=== PATIENT | female | born 1950 | race Two or more races ===

== ENCOUNTER → 2024-06-16 | Outpatient (CLI) | payer OTHER, SELFPAY ==
[2024-06-16 07:53] LABS: Collection Type, Urine Clean Catch
[2024-06-16 08:30] LABS: Basophils # (Auto) 0.1 Thou/mm3 (0.0-0.2); Basophils % (Auto) 1 % (0-2.5); Eosinophils # (Auto) 0.2 Thou/mm3 (0.0-0.5); Eosinophils % (Auto) 3 % (0-10); Hematocrit 40.1 % (36.0-46.0); Hemoglobin 13.1 g/dL (12.0-16.0); Immature Granulocytes % (Auto) 0 % (0-0); Immature Granulocytes Auto 0.02 Thou/mm3 (0.00-0.00); Lymphocytes # (Auto) 1.6 Thou/mm3 (1.0-4.8); Lymphocytes % (Auto) 20 % (10-50); Mean Corpuscular HGB Conc 32.7 g/dl (31.0-37.0); Mean Corpuscular Hemoglobin 28.7 pg (25.0-35.0); Mean Corpuscular Volume 88 fL (80-100); Monocytes # (Auto) 0.6 Thou/mm3 (0.0-0.8); Monocytes % (Auto) 7 % (0-12); Neutrophils # (Auto) 5.4 Thou/mm3 (1.8-7.7); Neutrophils % (Auto) 69 % (37-80); Nucleated Red Blood Cell % 0 /100 WBC (0); Platelet Count 203 Thou/mm3 (140-440); RDW Standard Deviation 43.4 fL (36.4-46.3); Red Blood Count 4.56 Miln/mm3 (4.00-5.20); White Blood Count 7.9 Thou/mm3 (3.6-11.0)
[2024-06-16 08:36] LABS: Bacteria,Urine Rare; Bilirubin,Urine Negative (Negative); Blood,Urine Negative (Negative); Clarity,Urine Clear (Clear/Hazy); Color,Urine Yellow (Lt Yel-Yel); Glucose, Urine Negative (Negative); Ketones,Urine Negative (Negative); Leukocyte Esterase,Urine Positive (Negative); Nitrite,Urine Negative (Negative); Protein,Urine Trace (Neg - Trace); RBC,Urine 7 /hpf (0-3); Specific Gravity,Urine 1.028 (1.001-1.035); Squamous Epithelial Cell,Urine 5 /hpf (0-5); Urobilinogen,Urine Negative mg/dL (0.0-1.0); WBC,Urine 4 /hpf (0-5)
[2024-06-16 08:49] LABS: Alanine Aminotransferase 25 U/L (10-49); Albumin, Serum 4.1 gm/dL (3.4-4.8); Albumin/Globulin Ratio 1.4 (1.2-2.2); Alkaline Phosphatase 67 U/L (46-116); Anion Gap 5 (7-16); Aspartate Amino Transferase 22 U/L (0-34); BUN/Creatinine Ratio 29 Ratio (12-20); Bilirubin,Total 0.6 mg/dL (0.3-1.2); Blood Urea Nitrogen 26 mg/dL (9-23); Carbon Dioxide 30.4 mMol/L (20.0-31.0); Chloride 107 mMol/L (98-107); Creatinine (Component) 0.9 mg/dL (0.6-1.3); Globulin 2.9 gm/dL (2.3-3.5); Glucose 112 mg/dL (74-106); Osmolality,Calculated 288 (275-295); Potassium 3.5 mMol/L (3.4-5.1); Sodium 142 mMol/L (136-145); Thyroid Stimulating Hormone 1.19 uIU/mL (0.55-4.78); eGFR > 60 See Note
== END | disposition home or self-care (01) ==
LOC: COPL 07:29
PROVIDERS: PCP Family Medicine; Referring Provider Family Medicine; Visit Provider Family Medicine
DX: I10 Essential (primary) hypertension (principal)
CPT/HCPCS: 36415; 80053; 81001; 84443; 85025

== ENCOUNTER 2024-07-01 09:58 | Emergency (ER) | payer OTHER, SELFPAY ==
[2024-07-01 09:59] VITALS: BMI 25.3
[2024-07-01 10:42] VITALS: BP 110/47; PULSE 73; RESP 18; TEMP 36.8; O2SAT 95; BMI 25.3
--- NOTE | 2024-07-01 11:10 | XR_ITS ---
Examination: Left hand 2 views Technique: AP lateral left hand 2 views Exam date and time: July 01, 2024 11:18 AM Indications: Patient fell yesterday with injury to the hand, hand pain wrist pain Findings: Prominent osteopenia Acute impacted angulated fracture distal radial metaphysis, one half shaft width dorsal displacement of the distal fracture fragment Carpal bones metacarpals and digits appear intact Impression: Acute impacted angulated displaced fracture distal radial metaphysis
--- NOTE | 2024-07-01 11:10 | XR_ITS ---
Examination: Forearm, left, 2 views. Technique: Forearm, AP, lateral 2 views Date and time of exam: July 01, 2024 1114 hrs. Indications: Patient fell yesterday with injury to the forearm, forearm pain. Findings: Acute impacted angulated fracture distal radial metaphysis, one half shaft width dorsal displacement of the distal articulating fracture fragment All intact Impression: Acute angulated impacted fracture distal radial metaphysis
--- NOTE | 2024-07-01 11:11 | PD.EDRME ---
Rapid Medical Screening Exam [facility] Arrival date/time: 07/01/24 09:58 Chief Complaint: Hand/Wrist Problems Time Seen by Provider: 07/01/24 10:46 Vital signs: Vital Signs Temperature 98.2 F 07/01/24 10:42 Pulse Rate 73 07/01/24 10:42 Respiratory Rate 18 07/01/24 10:42 Blood Pressure 110/47 L 07/01/24 10:42 Pulse Oximetry (%) 95 07/01/24 10:42 Oxygen Delivery Method Room Air 07/01/24 10:42 [facility] Narrative: 73-year-old female sustained a trip and fall after her daughter's dog tripped her. No loss of consciousness. Pain and swelling is isolated to left forearm left wrist and left hand. Was seen at urgent care and given a shot for pain. But they did not have an x-ray machine. Family is concerned about a fracture.
--- NOTE | 2024-07-01 15:27 | PD.EDHAND ---
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 She states that a family member's dog accidentally tripped her and she fell over backwards with her hands above her head. She sustained an injury to her left wrist but denies striking her head or having any loss of consciousness. She denies any neck pain, head pain, right upper extremity pain, hip or pelvic pain or lower extremity pain. She was seen at urgent care earlier today but no x-rays were available at the facility. She was given an injection of Toradol. Her pain is currently mild. She was offered additional pain medications which she refused. Mode of arrival: ambulatory Limitations: no limitations RME / HPI RME / HPI narrative: 73-year-old female sustained a trip and fall after her daughter's dog tripped her. No loss of consciousness. Pain and swelling is isolated to left forearm left wrist and left hand. Was seen at urgent care and given a shot for pain. But they did not have an x-ray machine. Family is concerned about a fracture. Related Data Home Medications ?Medication ?Instructions ?Recorded ?Confirmed aspirin 81 mg tablet,delayed 81 mg PO QDAY 01/15/19 07/10/24 release (Aspir-) atorvastatin 20 mg tablet 20 mg PO QPM 01/15/19 07/10/24 diltiazem HCl 240 mg 240 mg PO QDAY 01/15/19 07/10/24 capsule,extended release 24 hr, controlled (DILT-XR) enalapril maleate 20 mg tablet 20 mg PO QDAY 01/15/19 07/10/24 hydrochlorothiazide 25 mg tablet 25 mg PO QDAY 01/15/19 07/10/24 multivitamin with [id number] 1 tab PO DAILY 01/15/19 07/10/24 400 mcg-120 mg tablet (One Daily Women 50 Plus) Previous Rx's ?Medication ?Instructions ?Recorded escitalopram oxalate 10 mg tablet 10 mg PO QDAY #30 tabs 01/17/19 Allergies Allergy/AdvReac Type Severity Reaction Status Date / Time No Known Allergies Allergy Verified 07/01/24 10:01 Review of Systems Review of Systems Systems Reviewed: All systems reviewed, normal except as documented Constitutional Constitutional: Reports system reviewed and no additional complaints, except as documented Cardiovascular Cardiovascular: Reports system reviewed and no additional complaints, except as documented, Denies chest pain, Denies dyspnea and Denies lightheadedness Respiratory Respiratory: Reports system reviewed and no additional complaints, except as documented, Denies cough and Denies dyspnea Gastrointestinal Gastrointestinal: Denies nausea and Denies vomiting Past Medical History Past Medical History NEUROLOGIC: Positive Neurological Disorders and Cerebrovascular Accident CARDIAC: Positive Cardiac Disorders, Hypercholesterolemia, Aneurysm and Hypertension; Negative Congestive Heart Failure RESPIRATORY: Negative Chronic Obstructive Pulmonary Disease (COPD) GASTROINTESTINAL: Negative Gastrointestinal Disorders GENITOURINARY: Positive Genitourinary Disorders; Negative Renal Disease MUSCULOSKELETAL: Positive Musculoskeletal Disorders and Arthritis ENDOCRINE: Negative Endocrine Disorders, Diabetes Mellitus Type 1 or Diabetes Mellitus Type 2 HEMATOLOGIC: Positive Blood Disorders and Anemia PSYCHO/SOCIAL: Positive Depression OTHER HISTORY: Negative Autoimmune Disease Family History FAMILY HISTORY: Positive Family Respiratory Disorders, Family Cardiac Disorders, Family Cancer and Family Surgery; Negative Family Psychiatric Problems, Family Gastrointestinal Problems or Family Anesthesia Reaction Social History SMOKING STATUS: Never smoker SECOND HAND EXPOSURE: No ED Exam General Limitations: Present no limitations General appearance: Present in no apparent distress Head Head exam: Present atraumatic and normocephalic Eye Eye exam: Present normal appearance; Absent conjunctival injection ENT ENT exam: Present normal exam Neck Neck exam: Present normal inspection and full ROM Chest Chest inspection: Present normal inspection and symmetric chest wall rise Respiratory Respiratory exam: Present normal lung sounds bilaterally; Absent respiratory distress Cardiovascular Cardiovascular exam: Present regular rate and normal rhythm Extremities Exam Extremities exam: Present tenderness; Absent normal inspection or full ROM Expanded Upper Extremity Exam Shoulder exam: Present normal inspection and full ROM; Absent tenderness Arm exam: Present normal inspection; Absent tenderness Elbow exam: Present normal inspection and full ROM; Absent tenderness Forearm/Wrist exam: Present tenderness, swelling, ecchymosis and deformity; Absent normal inspection, full ROM, tenderness over anatomical snuff box or pain with axial thumb loading Hand exam: Present full ROM, swelling and ecchymosis; Absent tenderness Vascular exam: Normal capillary refill Back Exam Back exam: Present normal inspection Neurological Exam Neurological exam: Present alert and oriented X3; Absent motor sensory deficit Psychiatric Psychiatric exam: Present normal affect and normal mood Skin Skin exam: Present warm, dry and intact Course Course Course Narrative: 73-year-old female with a past medical history of hypertension, hyperlipidemia, and 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 She states that a family member's dog accidentally tripped her and she fell over backwards with her hands above her head. She sustained an injury to her left wrist but denies striking her head or having any loss of consciousness. She denies any neck pain, head pain, right upper extremity pain, hip or pelvic pain or lower extremity pain. She was seen at urgent care earlier today but no x-rays were available at the facility. She was given an injection of Toradol. Her pain is currently mild. She was offered additional pain medications which she refused. Exam reveals a alert and oriented 73-year-old female with right sided weakness secondary to a previous aneurysm early in life. She has no tenderness to the neck, shoulders, upper arms or elbows. Left forearm reveals swelling, tenderness and ecchymosis to the distal radius area. The swelling and ecchymosis extend down to the left wrist radial side and into the left hand. There is no tenderness to the left hand and no pain with axial thumb load or snuffbox tenderness. She has decreased range of motion secondary to pain. Neuro, motor, vascular intact distally. The patient was placed in a volar splint and given a sling. She will be advised to follow-up with her primary care physician for referral to an urban redevelopment specialist. It is recommended that she ice and elevate the left upper extremity to prevent reduce swelling, pain. Quality Measures none Orders Category Date Time Status XR forearm LT 2V Stat Exams 07/01/24 11:10 Completed XR hand LT 2V Stat Exams 07/01/24 11:10 Completed Vital Signs Vital signs: Vital Signs Temperature 98.2 F 07/01/24 10:42 Pulse Rate 73 07/01/24 10:42 Respiratory Rate 18 07/01/24 10:42 Blood Pressure 110/47 L 07/01/24 10:42 Pulse Oximetry (%) 95 07/01/24 10:42 Oxygen Delivery Method Room Air 07/01/24 10:42 Procedures -ED Splint Fabrication: Clinician Made Type: Volar Reason for Splint: Pain Management Site condition: Bruised, Numbness and Tingling Extremity Injury MDM Narrative MDM Narrative:: 73-year-old female with a past medical history of hypertension, hyperlipidemia, and 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 She states that a family member's dog accidentally tripped her and she fell over backwards with her hands above her head. She sustained an injury to her left wrist but denies striking her head or having any loss of consciousness. She denies any neck pain, head pain, right upper extremity pain, hip or pelvic pain or lower extremity pain. She was seen at urgent care earlier today but no x-rays were available at the facility. She was given an injection of Toradol. Her pain is currently mild. She was offered additional pain medications which she refused. Exam reveals a alert and oriented 73-year-old female with right sided weakness secondary to a previous aneurysm early in life. She has no tenderness to the neck, shoulders, upper arms or elbows. Left forearm reveals swelling, tenderness and ecchymosis to the distal radius area. The swelling and ecchymosis extend down to the left wrist radial side and into the left hand. There is no tenderness to the left hand and no pain with axial thumb load or snuffbox tenderness. She has decreased range of motion secondary to pain. Neuro, motor, vascular intact distally. The patient was placed in a volar splint and given a sling. She will be advised to follow-up with her primary care physician for referral to an urban redevelopment specialist. It is recommended that she ice and elevate the left upper extremity to prevent reduce swelling, pain. Patient data External records reviewed:: None Clinical information provided by:: patient Social determinants that could affect healthcare access:: none Patient has the following chronic illnesses:: HTN, HLD, Depression How is presenting disease/condition affected by chronic disease/condition?: uneffected by Evaluation data The following diagnostics were reviewed and interpreted by me:: radiology exam(s) Lab and/or radiology exams considered but not ordered:: N/A Interpretation Summary: Left Hand X-ray: Findings: Prominent osteopenia. Acute impacted angulated fracture distal radial metaphysis, one half shaft width. dorsal displacement of the distal fracture fragment. Carpal bones metacarpals and digits appear intact Impression: Acute impacted angulated displaced fracture distal radial metaphysis Left Forearm X-ray: Findings: Acute impacted angulated fracture distal radial metaphysis, one half shaft width dorsal displacement of the distal articulating fracture fragment All intact Impression: Acute angulated impacted fracture distal radial metaphysis Medications / Prescriptions Medications or Prescriptions considered but not ordered:: N/A Medication administrations:: N/A Consultations Consultation(s) initiated? (list below): No Diagnosis Upper Extremity Injury Differential Diagnosis: sprain and strain of wrist, fracture of wrist, Colles' fracture and fracture of hand Most likely diagnosis given after review of the tests above:: Distal Radius Fracture Admission Indicated Admission indicated?: not indicated Explain why admission is indicated or not indicated:: Patient is stable for discharge Admission Request Was there a request for admission?: No Disposition Plan Disposition Plan: Discharge Discharge Attestation Discharge Attestation: The patient and all family members were given an opportunity to ask questions and understood the discharge instructions. Discharge instructions specifically effects, indications for sooner follow up or return to the emergency department, and the expected course of current diagnosis. Patient condition: Stable Discharge Plan Plan Patient Disposition: HOME (Self Care) Discharge Disposition comment: Stable & Improved Prescriptions/Referrals Prescriptions/Med Rec: No Action atorvastatin 20 mg Tablet 20 mg PO QPM diltiazem HCl [DILT-XR] 240 mg Capsule,Ext.Rel 24h Degradable 240 mg PO QDAY enalapril maleate 20 mg Tablet 20 mg PO QDAY hydrochlorothiazide 25 mg Tablet 25 mg PO QDAY aspirin [Aspir-81] 81 mg Tablet,Delayed Release (Dr/Ec) 81 mg PO QDAY One Daily Women 50 Plus 400-120 mcg-mg Tablet 1 tab PO DAILY escitalopram oxalate 10 mg Tablet 10 mg PO QDAY Qty: 30 0RF Referrals: Unique Rojo MD [Primary Care Provider] - In 1 week Problem List Clinical Impression: Fracture of wrist Patient/Caregiver Discharge Instructions Discharge Activity: other Other Activity Instructions:: Wear the splint at all times until you are seen by the urban redevelopment specialist. At that time they will replace the splint and determine if surgical repair is necessary. Education Materials: Treating Wrist Fractures, ED Fracture, Wrist, General Additional Instructions: Follow-up with primary care physician for referral to an urban redevelopment specialist. 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
== END 2024-07-01 15:57 | disposition home or self-care (01) ==
PROVIDERS: Emergency Provider Emergency Medicine; PCP Family Medicine
DX: S52.502A Unspecified fracture of the lower end of left radius, initial encounter for closed fracture (principal); W01.0XXA Fall on same level from slipping, tripping and stumbling without subsequent striking against object, initial encounter
CPT/HCPCS: 29125; 73090; 73120; 99283

== ENCOUNTER 2024-07-10 13:30 | Inpatient (IN) | payer OTHER, MEDICARE, SELFPAY ==
[2024-07-10 13:37] VITALS: BP 132/66; RESP 17; TEMP 36.7; O2SAT 97
--- NOTE | 2024-07-10 13:45 | XR_ITS ---
Examination: CT brain head without contrast. 2-D sagittal coronal reconstructions Date and time of exam:July 10, 2024 1516 hours Comparison January 15, 2019 INDICATIONS: Patient fell 4 days ago with injury to the head, head pain CTDI: vol (mGy):9.9 DLP: (mGycm):955 Technique: Multiple CT axial sections of the brain have been obtained, 5 mm slice thickness. Contrast has not been administered. 2-D sagittal, coronal reconstructions have been obtained Low dose protocols were performed. One or more of the following dose reduction techniques were used; automated exposure control, adjustment of the mA and/or KV according to patient size, use of iterative reconstruction technique. Findings: No significant ventricular enlargement. 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 No mass effect or midline shift Basal cisterns are not remarkable. Fourth ventricle is midline. Cranial vault intact. Impression: Negative for acute hemorrhage, mass effect or midline shift
--- NOTE | 2024-07-10 13:45 | XR_ITS ---
Examination: CT cervical spine without contrast 2-D sagittal reconstructions 2-D coronal reconstructions 3-D reconstructions. Exam date and time:July 10, 2024 1516 hours INDICATIONS: Patient fell 4 days ago with injury to the neck, neck pain CTDI:vol (mGy) 7.9 DLP: (mGycm) 182 Technique: Multiple 2 mm axial sections of the cervical spine have been obtained. The coronal and sagittal reconstructions have been obtained. 3-D reconstructions have been obtained. Low dose protocols were performed. One or more of the following dose reduction techniques were used; automated exposure control, adjustment of the mA and/or KV according to patient size, use of iterative reconstruction technique. Findings: Axial sections demonstrate intact base of the skull. C1 exhibit satisfactory relationship to the odontoid. No acute cervical vertebral body fracture seen. Alignment posterior spinous processes satisfactory. Impression: No acute cervical fracture.
--- NOTE | 2024-07-10 13:45 | EKG_ITS ---
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
[2024-07-10 13:48] VITALS: PULSE 71
--- NOTE | 2024-07-10 13:48 | PD.EDADULT ---
ED General RME/HPI General Chief complaint: Fall Stated complaint: FALL Time Seen by Provider: 07/10/24 13:44 Arrival date/time: 07/10/24 13:30 CC: Altered mental status HPI patient fell 4 days ago managed to crawl up into a chair and sat there for the past 4 days until her daughter showed up and called 911. The patient supposedly has a prior TBI history, patient was seen here recently for fall resulting in a wrist fracture. Patient is awake alert and oriented to self and place. Has no specific pain. Space that the 4 days she is sitting in the chair she was defecating and urinating on herself. EMS reports stable vital signs en route. I interviewed the care provider at 1940 was states the patient slipped and fell on Wednesday was placed in the recliner, they were not able to move her to the bed, but they would stand her up to dress her and feed her on occasion but left her in the chair for 3 days and finally were concerned that the patient was not doing any better and called 911. Related Data Home Medications ?Medication ?Instructions ?Recorded ?Confirmed aspirin 81 mg tablet,delayed 81 mg PO QDAY 01/15/19 01/16/19 release (Aspir-) atorvastatin 20 mg tablet 20 mg PO QPM 01/15/19 01/16/19 carvedilol 6.25 mg tablet 6.25 mg PO BID 01/15/19 01/16/19 diltiazem HCl 240 mg 240 mg PO QDAY 01/15/19 01/16/19 capsule,extended release 24 hr, controlled (DILT-XR) enalapril maleate 20 mg tablet 20 mg PO QDAY 01/15/19 01/16/19 hydrochlorothiazide 25 mg tablet 25 mg PO QDAY 01/15/19 01/16/19 multivitamin with [id number] 1 tab PO 01/15/19 400 mcg-120 mg tablet (One Daily Women 50 Plus) Previous Rx's ?Medication ?Instructions ?Recorded escitalopram oxalate 10 mg tablet 10 mg PO QDAY #30 tabs 01/17/19 Allergies Allergy/AdvReac Type Severity Reaction Status Date / Time No Known Allergies Allergy Verified 07/01/24 10:01 Review of Systems Review of Systems Narrative Review of Systems: GEN: No fever, no chills, no weight loss EYES: No discharge, no visual changes, no pain HEENT: No ear pain, no congestion, no sore throat PULM: No shortness of breath, no cough, no congestion CV: No chest pain, no dyspnea on exertion, no palpitations GI: No nausea, no vomiting, no diarrhea, no pain, no constipation : No frequency, no urgency, no dysuria MUSC/SKEL: No joint pain, no back pain SKIN: No rash PSYCH: No hallucinations, no depression HEME/LYMPH: No easy bleeding or bruising tendencies NEURO: No weakness, no headache Past Medical History Past Medical History NEUROLOGIC: Positive Neurological Disorders and Cerebrovascular Accident CARDIAC: Positive Cardiac Disorders, Hypercholesterolemia, Aneurysm and Hypertension; Negative Congestive Heart Failure RESPIRATORY: Negative Chronic Obstructive Pulmonary Disease (COPD) GASTROINTESTINAL: Negative Gastrointestinal Disorders GENITOURINARY: Positive Genitourinary Disorders (UTI); Negative Renal Disease MUSCULOSKELETAL: Positive Musculoskeletal Disorders and Arthritis ENDOCRINE: Negative Endocrine Disorders, Diabetes Mellitus Type 1 or Diabetes Mellitus Type 2 HEMATOLOGIC: Positive Blood Disorders and Anemia PSYCHO/SOCIAL: Positive Depression OTHER HISTORY: Negative Autoimmune Disease Family History FAMILY HISTORY: Positive Family Respiratory Disorders, Family Cardiac Disorders, Family Cancer and Family Surgery; Negative Family Psychiatric Problems, Family Gastrointestinal Problems or Family Anesthesia Reaction Social History SMOKING STATUS: Never smoker SECOND HAND EXPOSURE: No ED Exam Narrative Physical exam: [General: Appears not in any acute distress Head normocephalic HEENT: Within acceptable limits Neck is supple nontender Chest equal chest rise nontender to palpation Respiratory: Clear to auscultation no wheezes crackles or rubs CV: Rate rhythm is regular no murmurs rubs or clicks Abdomen is soft nontender no masses positive bowel sounds all 4 quadrants Back: No CVA tenderness no spinous process tenderness from cervical spine thoracic and lumbar spine Skin: Intact no petechiae rash induration ulceration or crepitus Extremities: Left wrist: Patient has a splint on her left wrist with ecchymosis to the dorsum of her hand that are in various stages of resolution. Moving all other extremities against resistance cap refill less than 2 seconds neurosensory intact Neuro: Awake alert oriented x2, person and place, Glascow coma 15 no focal deficits] Course Quality Measures none Orders Category Date Time Status EKG (ED ONLY) *Do not use* NOW Care 07/10/24 13:45 Completed Saline [Insert IV] NOW Care 07/10/24 13:[address] cervical spine wo con Stat Exams 07/10/24 13:[address] head/brain wo con Stat Exams 07/10/24 13:45 Completed EKG (ED Only) Stat Exams 07/10/24 13:45 Draft B-Type Natriuretic Peptide Stat Lab 07/10/24 14:15 Completed CBC Stat Lab 07/10/24 14:15 Completed CMP [Comprehensive Metabolic Panel] Stat Lab 07/10/24 18:20 Results Comprehensive Metabolic Panel Stat Lab 07/10/24 14:15 Completed Creatine Kinase Stat Lab 07/10/24 14:15 Completed Creatine Kinase Stat Lab 07/10/24 18:20 Results Drug Screen,Urine Stat Lab 07/10/24 19:51 Completed LDH (Lactate Dehydrogenase) Stat Lab 07/10/24 14:15 Completed Magnesium Stat Lab 07/10/24 14:15 Completed Partial Thromboplastin Time Stat Lab 07/10/24 14:15 Completed Procalcitonin Stat Lab 07/10/24 18:20 Results Prothrombin Time with INR Stat Lab 07/10/24 14:15 Completed Troponin I Stat Lab 07/10/24 14:15 Completed Urinalysis Stat Lab 07/10/24 19:51 Completed Sodium Chloride 0.9% 1000 ml [Ns] 1,000 ml Med 07/10/24 16:24 Discontinued IV 125 mls/hr Sodium Chloride 0.9% 1000 ml [Ns] 1,000 ml Med 07/10/24 15:10 Discontinued IV 999 mls/hr Sodium Chloride 0.9% 1000 ml [Ns] 1,000 ml Med 07/10/24 15:11 Discontinued IV 999 mls/hr Vital Signs Vital signs: Vital Signs Temperature 98.1 F 07/10/24 13:37 Respiratory Rate 17 07/10/24 13:37 Blood Pressure 132/66 H 07/10/24 13:37 Pulse Oximetry (%) 97 07/10/24 13:37 Oxygen Delivery Method Room Air 07/10/24 13:37 [facility] Patient data External records reviewed:: [facility] previous records and EMS form Clinical information provided by:: patient and EMS Social determinants that could affect healthcare access:: none Patient has the following chronic illnesses:: TBI recurrent fall How is presenting disease/condition affected by chronic disease/condition?: uneffected by Evaluation data The following diagnostics were reviewed and interpreted by me:: lab results and radiology exam(s) Lab and/or radiology exams considered but not ordered:: EKG performed at 1406 shows ventricular rate of 6 6 NC 169 QRS of 133 QTc of 437 this is sinus rhythm. CBC shows a leukocytosis of 15.0 H&H is unremarkable. No thrombocytopenia PC coags within acceptable limits Sodium at 146 potassium of 2.9 chloride of 111 gap of 8 BUN of 31 creatinine of 0.8 serum osmole 297 AST 84 ALT 55 no T. bili elevation alk phos is negative. CK has risen from 900-1000 in spite of 2 L of fluids. BMP is negative. CT head and C-spine are negative for any acute finding requires emergent or immediate intervention Interpretation Summary: In spite of fluids the patient's CKs continue to rise there is no change in her electrolyte imbalances this time I discussed the case with Dr. Faria agrees to accept the patient for admission for hypernatremia rhabdo myelosis. Medications Medications considered but not ordered:: None Medication administrations:: Medication Administration History Acetaminophen (Acetaminophen 325 Mg Tablet) 650 mg PO Q6H PRN PRN Reason: Fever >101.5 Stop: 08/09/24 19:53 Escitalopram Oxalate (Escitalopram Oxalate 10 Mg Tablet) 10 mg PO QDAY [facility] Stop: 08/10/24 08:59 Heparin Sodium (Porcine) (Heparin Sod Inj 5000 Unit/Ml Vial) 5,000 unit SC Q8HR [facility] Stop: 07/24/24 21:59 Potassium Chloride (Kcl Ivpb) 10 meq in 100 mls @ 100 mls/hr IV Q1H NGUYỄN Stop: 07/10/24 23:55 Last Admin: 07/10/24 20:37 Dose: 100 mls/hr Documented By: ANIKET Sodium Chloride (Ns 0.45%) 1,000 mls @ 150 mls/hr IV .Q6H40M [facility] Stop: 08/09/24 20:08 Last Admin: 07/10/24 20:37 Dose: 150 mls/hr Documented By: ANIKET Ceftriaxone Sodium/Dextrose (Rocephin/D5w 1gm Iv Premix) 1 gm in 50 mls @ 100 mls/hr IV QDAY@2100 [facility] Stop: 07/17/24 20:20 Last Admin: 07/10/24 20:50 Dose: 100 mls/hr Documented By: ANIKET Lisinopril (Lisinopril 20 Mg Tablet) 40 mg PO QDAY NGUYỄN Stop: 08/10/24 08:59 Discontinued Medications Sodium Chloride (Ns) 1,000 mls @ 999 mls/hr IV .Q1H1M ONE Stop: 07/10/24 16:10 Last Infusion: 07/10/24 16:27 Dose: Infused Documented By: Admin: 07/10/24 15:26 Dose: 999 mls/hr Documented By: DWAYNE Sodium Chloride (Ns) 1,000 mls @ 999 mls/hr IV .Q1H1M ONE Stop: 07/10/24 16:11 Last Infusion: 07/10/24 16:27 Dose: Infused Documented By: Admin: 07/10/24 15:26 Dose: 999 mls/hr Documented By: DWAYNE Sodium Chloride (Ns) 1,000 mls @ 125 mls/hr IV .Q8H [facility] Stop: 08/09/24 16:23 Last Admin: 07/10/24 16:33 Dose: 125 mls/hr Documented By: BIN Dextrose/Sodium Chloride (D5-1/2ns) 1,000 mls @ 125 mls/hr IV .Q8H [facility] Stop: 08/09/24 19:59 None Consultations Consultation(s) initiated? (list below): No Diagnosis Differential Diagnosis ED Complaint MDM: Rhabdomyolysis hypernatremia hypokalemia Most likely diagnosis given after review of the tests above:: Rhabdomyolysis hypernatremia hypokalemia Admission Indicated Admission indicated?: indicated Explain why admission is indicated or not indicated:: Quires further medical management Admission Request Was there a request for admission?: No Disposition Plan Disposition Plan: Discharge Discharge Attestation Discharge Attestation: The patient and all family members were given an opportunity to ask questions and understood the discharge instructions. Discharge instructions specifically effects, indications for sooner follow up or return to the emergency department, and the expected course of current diagnosis. Patient condition: Stable Medical Decision Making Differential Diagnosis Differential Diagnosis: Rhabdomyolysis hypernatremia hypokalemia Lab Data 07/10/24 14:15 07/10/24 18:20 Labs: Lab Results 07/10/24 07/10/24 07/10/24 Range/Units 14:15 18:20 19:51 WBC 15.0 H (3.6-11.0) Thou/mm3 RBC 4.04 (4.00-5.20) Miln/mm3 Hgb 11.8 L (12.0-16.0) g/dL Hct 36.0 (36.0-46.0) % MCV 89 (80-100) fL MCH 29.2 (25.0-35.0) pg MCHC 32.8 (31.0-37.0) g/dl RDW Std Deviation 43.8 (36.4-46.3) fL Plt Count 248 D (140-440) Thou/mm3 Neut % (Auto) 76 (37-80) % Lymph % (Auto) 12 (10-50) % [place] % (Auto) 8 (0-12) % Eos % (Auto) 3 (0-10) % Baso % (Auto) 0 (0-2.5) % Neut # (Auto) 11.5 H (1.8-7.7) Thou/mm3 Lymph # (Auto) 1.7 (1.0-4.8) Thou/mm3 Johnston # (Auto) 1.2 H (0.0-0.8) Thou/mm3 Eos # (Auto) 0.4 (0.0-0.5) Thou/mm3 Baso # (Auto) 0.1 (0.0-0.2) Thou/mm3 Immature Gran # (Auto) 0.17 H (0.00-0.00) Thou/mm3 Absolute Nucleated RBC 0.00 (0.00-0.00) Thou/mm3 Immature Gran % 1 H (0-0) % Nucleated RBC % 0 (0) /100 WBC PT 10.8 (9.0-12.2) Seconds INR 1.0 (0.9-1.3) APTT 24.0 (22.0-36.0) Seconds Sodium 144 146 H (136-145) mMol/L Potassium 2.9 L 2.9 L (3.4-5.1) mMol/L Chloride 108 H 111 H (98-107) mMol/L Carbon Dioxide 29.8 27.3 (20.0-31.0) mMol/L Anion Gap 6 L 8 (7-16) BUN 37 H 31 H (9-23) mg/dL Creatinine 0.9 0.8 (0.6-1.3) mg/dL Estim Creat Clear Calc Not Performed. Not Performed. eGFR > 60 > 60 (60 - ) See Note BUN/Creatinine Ratio 41 H 39 H (12-20) Ratio Glucose 142 H 100 (74-106) mg/dL Calculated Osmolality 297 H 297 H (275-295) Calcium 9.4 8.6 (8.3-10.6) mg/dL Corrected Calcium 9.9 9.2 (8.5-10.1) mg/dL Magnesium 2.1 (1.6-2.6) mg/dL Total Bilirubin 0.8 0.7 (0.3-1.2) mg/dL AST 87 H 84 H (0-34) U/L ALT 60 H 55 H (10-49) U/L Alkaline Phosphatase 120 H 106 (46-116) U/L Lactate Dehydrogenase 505 H (120-246) U/L Total Creatine Kinase 937 H 1004 H D (34-171) U/L Troponin I 0.038 (0.0-0.045) ng/mL B-Natriuretic Peptide 24 (0-100) pg/mL Total Protein 6.4 6.0 (5.7-8.2) gm/dL Albumin 3.4 3.2 L (3.4-4.8) gm/dL Globulin 3.0 2.8 (2.3-3.5) gm/dL Albumin/Globulin Ratio 1.1 L 1.1 L (1.2-2.2) Ur Collection Type Clean Catch Urine Color Yellow (Lt Yel-Yel) Urine Clarity Turbid A (Clear/Hazy) Urine pH 6.5 (5.0-7.0) Ur Specific [place] 1.018 (1.001-1.035) Urine Protein Trace (Neg - Trace) Urine Glucose (UA) Negative (Negative) Urine Ketones Negative (Negative) Urine Blood 2+ A (Negative) Urine Nitrite Negative (Negative) Urine Bilirubin Negative (Negative) Urine Urobilinogen (Auto) 2.0 (0.0-1.0) mg/dL Ur Leukocyte Esterase Positive (Negative) Urine RBC 90 H (0-3) /hpf Urine WBC 41 H (0-5) /hpf Ur Squamous Epith Cells 3 (0-5) /hpf Urine Bacteria 3+ A (None) Urine Opiates Screen Negative (Negative) Urine Fentanyl Screen Negative (Negative) Ur Barbiturates Screen Negative (Negative) U Amphetamin/Meth Scrn Negative (Negative) U Benzodiazepines Scrn Negative (Negative) U Cocaine Metab Screen Negative (Negative) U Marijuana (THC) Screen Negative (Negative) Discharge Plan Plan Patient Disposition: Other Care w/in Hosp ([facility]) Patient condition on transfer: Stable Problem List Clinical Impression: Rhabdomyolysis, Hypernatremia, Hypokalemia PA/ONLINE TUTOR Supervising Physician PA/ONLINE TUTOR Supervising Physician: Toño Gomes ENP
[2024-07-10 14:20] VITALS: BP 135/63; PULSE 65; RESP 19; TEMP 36.9; O2SAT 97
[2024-07-10 14:22] LABS: Basophils # (Auto) 0.1 Thou/mm3 (0.0-0.2); Basophils % (Auto) 0 % (0-2.5); Eosinophils # (Auto) 0.4 Thou/mm3 (0.0-0.5); Eosinophils % (Auto) 3 % (0-10); Hemoglobin 11.8 g/dL (12.0-16.0); Immature Granulocytes % (Auto) 1 % (0-0); Immature Granulocytes Auto 0.17 Thou/mm3 (0.00-0.00); Lymphocytes # (Auto) 1.7 Thou/mm3 (1.0-4.8); Lymphocytes % (Auto) 12 % (10-50); Mean Corpuscular HGB Conc 32.8 g/dl (31.0-37.0); Mean Corpuscular Hemoglobin 29.2 pg (25.0-35.0); Mean Corpuscular Volume 89 fL (80-100); Monocytes # (Auto) 1.2 Thou/mm3 (0.0-0.8); Monocytes % (Auto) 8 % (0-12); Neutrophils # (Auto) 11.5 Thou/mm3 (1.8-7.7); Neutrophils % (Auto) 76 % (37-80); Nucleated Red Blood Cell % 0 /100 WBC (0); Platelet Count 248 Thou/mm3 (140-440); RDW Standard Deviation 43.8 fL (36.4-46.3); Red Blood Count 4.04 Miln/mm3 (4.00-5.20)
[2024-07-10 14:41] LABS: Alanine Aminotransferase 60 U/L (10-49); Albumin, Serum 3.4 gm/dL (3.4-4.8); Albumin/Globulin Ratio 1.1 (1.2-2.2); Alkaline Phosphatase 120 U/L (46-116); Anion Gap 6 (7-16); Aspartate Amino Transferase 87 U/L (0-34); BUN/Creatinine Ratio 41 Ratio (12-20); Bilirubin,Total 0.8 mg/dL (0.3-1.2); Blood Urea Nitrogen 37 mg/dL (9-23); Calcium 9.4 mg/dL (8.3-10.6); Calcium (Corrected) 9.9 mg/dL (8.5-10.1); Carbon Dioxide 29.8 mMol/L (20.0-31.0); Chloride 108 mMol/L (98-107); Creatine Kinase 937 U/L (34-171); Creatinine (Component) 0.9 mg/dL (0.6-1.3); Glucose 142 mg/dL (74-106); LDH (Lactate Dehydrogenase) 505 U/L (120-246); Magnesium 2.1 mg/dL (1.6-2.6); Osmolality,Calculated 297 (275-295); Potassium 2.9 mMol/L (3.4-5.1); Sodium 144 mMol/L (136-145); Total Protein 6.4 gm/dL (5.7-8.2); Troponin I 0.038 ng/mL (0.0-0.045); eGFR > 60 See Note
[2024-07-10 14:45] LABS: Prothrombin Time 10.8 Seconds (9.0-12.2)
[2024-07-10 14:59] LABS: B-Type Natriuretic Peptide 24 pg/mL (0-100)
[2024-07-10] MEDS: SODIUM CHLORIDE 0.9% 1000 ML 1,000 ML 999 ML IV ×2 (15:26)
[2024-07-10 16:00] VITALS: BP 128/72; PULSE 72; RESP 15; TEMP 36.7; O2SAT 97
[2024-07-10] MEDS: SODIUM CHLORIDE 0.9% 1000 ML 1,000 ML 125 ML IV (16:33)
[2024-07-10 18:00] VITALS: BP 155/71; PULSE 76; RESP 19; TEMP 37.2; O2SAT 99
[2024-07-10 19:03] LABS: Alanine Aminotransferase 55 U/L (10-49); Albumin, Serum 3.2 gm/dL (3.4-4.8); Albumin/Globulin Ratio 1.1 (1.2-2.2); Alkaline Phosphatase 106 U/L (46-116); Anion Gap 8 (7-16); Aspartate Amino Transferase 84 U/L (0-34); BUN/Creatinine Ratio 39 Ratio (12-20); Bilirubin,Total 0.7 mg/dL (0.3-1.2); Blood Urea Nitrogen 31 mg/dL (9-23); Calcium 8.6 mg/dL (8.3-10.6); Calcium (Corrected) 9.2 mg/dL (8.5-10.1); Carbon Dioxide 27.3 mMol/L (20.0-31.0); Chloride 111 mMol/L (98-107); Creatine Kinase 1004 U/L (34-171); Creatinine (Component) 0.8 mg/dL (0.6-1.3); Globulin 2.8 gm/dL (2.3-3.5); Glucose 100 mg/dL (74-106); Osmolality,Calculated 297 (275-295); Potassium 2.9 mMol/L (3.4-5.1); Sodium 146 mMol/L (136-145); eGFR > 60 See Note
[2024-07-10 19:56] LABS: Collection Type, Urine Clean Catch
--- NOTE | 2024-07-10 20:02 | EVENTNT_ITS ---
Documentation for date of: 07/10/24 Event Note Event Note: A 73-year-old female presented to the ER with the chief complaint of generalized weakness and inability to ambulate following a fall at home. Patient reportedly slipped on Wednesday morning while ascending stairs and was unable to get up from the floor for several hours. She remained on the ground from approximately 9:00 AM until 4:00 PM when her daughter returned home and assisted her into a recliner. The patient remained mostly in the recliner over the subsequent three days, during which she was intermittently stood up for brief periods with assistance but was unable to walk. She experienced urinary incontinence and was unaware of voiding during this period. Oral intake was minimal on the day of the fall but resumed over the weekend. Prior to this event, she was independently ambulatory despite chronic right-sided weakness from a remote brain aneurysm. Patient also reports right-sided weakness and fatigue. She denied chest pain, shortness of breath, dizziness, headache, or nausea. 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 Surgical history includes aneurysm clipping and tracheostomy placement in the past. She does not smoke, drink alcohol, or use recreational drugs. She lives with her daughter, who is her primary caregiver. Prior to the current event, the patient was functionally independent with ambulation. Patient had a recent ED visit for wrist fracture on July 01. In the ER, vital signs recorded as temp 98.1?F, HR 66 bpm, RR 17, BP 132/66 mmHg. Labs revealed Na 146, K 2.9, BUN 31, Cr 0.8, glucose 100, AST 84, ALT 55, CK elevated from [address] head showed no acute hemorrhage, mass effect, or midline shift. CT cervical spine showed no acute cervical fracture. EKG showed normal sinus rhythm. The patient was admitted for rhabdomyolysis and physical therapy. #Acute Rhabdomyolysis #Hypernatremia Assessment: Prolonged immobility post-fall, CK elevated (937 -> 1004), mildly elevated AST/ALT, normal renal function (Cr 0.8), no reported myalgias or dark urine Plan: - Aggressive IV hydration - Monitor CK daily until trending down - Monitor renal function and electrolytes - Replete electrolytes as needed (notably K+ for initial 2.9) - Avoid nephrotoxins - Monitor urine output closely - Hold statins - PT evaluation for functional decline #Hypokalemia Assessment: Serum K+ 2.9, likely secondary to rhabdomyolysis-related shifts and/or poor intake Plan: - Replete potassium IV #UTI Assessment: UA turbid, WBC 41 Plan: - Ceftriaxone - Urine culture #Acute Functional Decline with Fall Assessment: Prolonged floor time after fall, generalized weakness, inability to ambulate, urinary incontinence, remote brain aneurysm with baseline right-sided hemiparesis Plan: - PT evaluation - Fall risk precautions #Hypertension Assessment: Known history, BP stable on admission Plan: - Resume home antihypertensives - Monitor BP during hospitalization
[2024-07-10 20:04] LABS: Bacteria,Urine 3+; Bilirubin,Urine Negative (Negative); Blood,Urine 2+ (Negative); Color,Urine Yellow (Lt Yel-Yel); Glucose, Urine Negative (Negative); Ketones,Urine Negative (Negative); Leukocyte Esterase,Urine Positive (Negative); Nitrite,Urine Negative (Negative); PH,Urine 6.5 (5.0-7.0); Protein,Urine Trace (Neg - Trace); RBC,Urine 90 /hpf (0-3); Specific Gravity,Urine 1.018 (1.001-1.035); Squamous Epithelial Cell,Urine 3 /hpf (0-5); WBC,Urine 41 /hpf (0-5)
--- NOTE | 2024-07-10 20:14 | XR_ITS ---
Examination: AP chest single view Technique one AP portable upright chest single view Exam date and time: July 10, 2024 at 2116 hrs. Comparison January 15, 2019 Indications: Diagnosis rhabdomyolysis Findings: Normal heart size Lungs are clear The osseous structures are demineralized Mild blunting left lateral costophrenic angle Impression: No active disease
[2024-07-10 20:20] LABS: Clarity,Urine Turbid (Clear/Hazy)
--- NOTE | 2024-07-10 20:20 | PD.RESHP ---
Documentation for date of: 07/10/24 HPI History of Present Illness Chief complaint: general weakness History of present illness: The patient is a 73-year-old female with a previous medical history of hypertension, hyperlipidemia, depression, recent fall with distal radial fracture in June 2024, cranial aneurysm rupture in 1982 with residual right-sided hemiparesis who was brought to the ED 07/10/2024 due to fall, generalized weakness and inability to ambulate independently. Patient reports that on Wednesday she was walking through the step up in her living room and fell, she was on the ground approximately from 9AM to 5 PM. She denies losing consciousness, hitting her head, dizziness, palpitations, chest pain, abdominal pain, dysuria. Her family helped her to the recliner, but she was not able to stand up from it. Her family helped her stand up, but they were unable to help her to walk. She was able to eat when being in the recliner. ED course: Blood pressure 134/66, pulse 65, saturating well on room air, labs show WBC count 15.0, hemoglobin 11.8, platelets 248, INR 1.0, sodium 146, potassium 2.9, chloride 111, BUN 31, creatinine 0.6, glucose 100, osmolality 297, AST 84, ALT 55, creatinine kinase 937, lactate dehydrogenase 505, Pro-Rory 0.19. Urine was turbid, blood 2+, 90 RBCs, WBC count 41, 3+ bacteria. EKG showed sinus rhythm, 66 bpm. Cervical spine was negative for acute cervical fracture. 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 In the ED patient received 2 L of fluids bolus and was started on normal saline at 125 mL/h, which was increased to 150 mL/h. Patient is going to be admitted for ground level fall and rhabdomyolysis treatment and management. Social history: Patient lives with her family, before fall she reports that she was able to ambulate around the house independently. Denies smoking, drinking alcohol. Medications: Official med rec is pending Surgical history: s/p surgery due to ruptured brain aneurysm Review of Systems Review of Systems Systems Reviewed: All systems reviewed, normal except as documented Past Medical History Past Medical History NEUROLOGIC: Positive Neurological Disorders and Cerebrovascular Accident CARDIAC: Positive Cardiac Disorders, Hypercholesterolemia, Aneurysm and Hypertension; Negative Congestive Heart Failure RESPIRATORY: Negative Chronic Obstructive Pulmonary Disease (COPD) GASTROINTESTINAL: Negative Gastrointestinal Disorders GENITOURINARY: Positive Genitourinary Disorders (UTI); Negative Renal Disease MUSCULOSKELETAL: Positive Musculoskeletal Disorders and Arthritis ENDOCRINE: Negative Endocrine Disorders, Diabetes Mellitus Type 1 or Diabetes Mellitus Type 2 HEMATOLOGIC: Positive Blood Disorders and Anemia PSYCHO/SOCIAL: Positive Depression OTHER HISTORY: Negative Autoimmune Disease Family History FAMILY HISTORY: Positive Family Respiratory Disorders, Family Cardiac Disorders, Family Cancer and Family Surgery; Negative Family Psychiatric Problems, Family Gastrointestinal Problems or Family Anesthesia Reaction Social History SMOKING STATUS: Never smoker SECOND HAND EXPOSURE: No Exam Vital Signs Temp Pulse Resp BP Pulse Ox O2 Del Method 98.9 F 76 19 155/71 H 99 Room Air 07/10/24 18:00 07/10/24 18:00 07/10/24 18:00 07/10/24 18:00 07/10/24 18:00 07/10/24 18:00 Narrative Exam Physical Exam General: Awake and in no acute distress. Conversational and non-toxic appearing. HEENT: Normocephalic, atraumatic, mucous membranes moist. Heart: Regular rate and rhythm, no murmurs. Lungs: Clear to auscultation with no wheezing or crackles. Abdomen: Soft, nondistended, nontender, positive bowel sounds. ?No guarding or rebound tenderness. Neurologic: Alert and oriented x3, lower extremity weakness R 2/5, L 4/5, left arm is splinted, able to move fingers, right arm 5/5. Extremities: No edema. Skin: No rash or ecchymoses. Results: Labs 07/10/24 14:15 07/10/24 18:20 Labs: Short CBC 07/10/24 Range/Units 14:15 WBC 15.0 H (3.6-11.0) Thou/mm3 Hgb 11.8 L (12.0-16.0) g/dL Hct 36.0 (36.0-46.0) % Plt Count 248 D (140-440) Thou/mm3 BMP 07/10/24 07/10/24 14:15 18:20 Sodium 144 146 H Potassium 2.9 L 2.9 L Chloride 108 H 111 H Carbon Dioxide 29.8 27.3 BUN 37 H 31 H Creatinine 0.9 0.8 Glucose 142 H 100 Calcium 9.4 8.6 Cardiac Enzymes 07/10/24 07/10/24 Range/Units 14:15 18:20 Total Creatine Kinase 937 H 1004 H D (34-171) U/L Troponin I 0.038 (0.0-0.045) ng/mL Liver Function 07/10/24 07/10/24 Range/Units 14:15 18:20 Total Bilirubin 0.8 0.7 (0.3-1.2) mg/dL AST 87 H 84 H (0-34) U/L ALT 60 H 55 H (10-49) U/L Alkaline Phosphatase 120 H 106 (46-116) U/L Albumin 3.4 3.2 L (3.4-4.8) gm/dL Urine 07/10/24 Range/Units 19:51 Urine Color Yellow (Lt Yel-Yel) Urine Clarity Turbid A (Clear/Hazy) Urine pH 6.5 (5.0-7.0) Ur Specific [place] 1.018 (1.001-1.035) Urine Protein Trace (Neg - Trace) Urine Glucose (UA) Negative (Negative) Quality Measures Quality Measures VTE prophylaxis Advance care planning discussed with:: patient Medications Home Medications and Allergies Home Medications ?Medication ?Instructions ?Recorded ?Confirmed ?Type aspirin 81 mg tablet,delayed 81 mg PO QDAY 01/15/19 07/10/24 History release (Aspir-) atorvastatin 20 mg tablet 20 mg PO QPM 01/15/19 07/10/24 History carvedilol 6.25 mg tablet 6.25 mg PO BID 01/15/19 07/10/24 History diltiazem HCl 240 mg 240 mg PO QDAY 01/15/19 07/10/24 History capsule,extended release 24 hr, controlled (DILT-XR) enalapril maleate 20 mg tablet 20 mg PO QDAY 01/15/19 07/10/24 History hydrochlorothiazide 25 mg tablet 25 mg PO QDAY 01/15/19 07/10/24 History multivitamin with [id number] 1 tab PO DAILY 01/15/19 07/10/24 History 400 mcg-120 mg tablet (One Daily Women 50 Plus) Allergies Allergy/AdvReac Type Severity Reaction Status Date / Time No Known Allergies Allergy Verified 07/01/24 10:01 Visit Medications Acetaminophen (Acetaminophen 325 Mg Tablet) 650 mg PO Q6H PRN PRN Reason: Fever >101.5 Stop: 05/14/25 19:53 Escitalopram Oxalate (Escitalopram Oxalate 10 Mg Tablet) 10 mg PO QDAY NGUYỄN Stop: 08/10/24 08:59 Heparin Sodium (Porcine) (Heparin Sod Inj 5000 Unit/Ml Vial) 5,000 unit SC Q8HR NGUYỄN Stop: 07/24/24 21:59 Potassium Chloride (Kcl Ivpb) 10 meq in 100 mls @ 100 mls/hr IV Q1H NGUYỄN Stop: 07/10/24 23:55 Sodium Chloride (Ns 0.45%) 1,000 mls @ 150 mls/hr IV .Q6H40M NGUYỄN Stop: 08/09/24 20:08 Lisinopril (Lisinopril 20 Mg Tablet) 40 mg PO QDAY NGUYỄN Stop: 08/10/24 08:59 Discontinued Medications Sodium Chloride (Ns) 1,000 mls @ 999 mls/hr IV .Q1H1M ONE Stop: 07/10/24 16:10 Last Infusion: 07/10/24 16:27 Dose: Infused Sodium Chloride (Ns) 1,000 mls @ 999 mls/hr IV .Q1H1M ONE Stop: 07/10/24 16:11 Last Infusion: 07/10/24 16:27 Dose: Infused Sodium Chloride (Ns) 1,000 mls @ 125 mls/hr IV .Q8H NGUYỄN Stop: 08/09/24 16:23 Last Admin: 07/10/24 16:33 Dose: 125 mls/hr Dextrose/Sodium Chloride (D5-1/2ns) 1,000 mls @ 125 mls/hr IV .Q8H NGUYỄN Stop: 08/09/24 19:59 Assessment & Plan Plan The patient is a 73-year-old female with a previous medical history of hypertension, hyperlipidemia, recent fall with distal radial fracture in June 2024, cranial aneurysm rupture in 1982 with residual right-sided hemiparesis who was brought to the ED 07/10/2024 due to fall, generalized weakness and inability to ambulate independently. #Rhabdomyolysis #Hypernatremia Patient has a recent history of prolonged immobilization, labs showed elevated CK 1004 elevated AST, ALT. Plan: ? Normal saline at 150 mL/h ? Daily CMP, monitor CK, renal functions and electrolytes ? I's and O's ? Home statin is on hold for now #Hypokalemia Plan: ? Replete electrolytes as necessary #Hypertension Plan: ? Lisinopril 40 mg daily #UTI Urine was turbid, blood 2+, 90 RBCs, WBC count 41, 3+ bacteria. PAtient denies dysuria, but reports urinary incontinence. Plan: - Ceftriaxone 1g qday - urine culture #History of falls #History of brain aneurysm rupture #Right-sided hemiparesis Patient has a history of falls and was unable to stand up independently which resulted in prolonged immobilization. She will benefit from course of physical therapy. Plan: ? PT evaluation #History of depression Plan: ? Official med rec is pending ? Consider restarting escitalopram Health maintenance: FEN: cardiac DVT prophylaxis: heparin sc GI prophylaxis: none Dispo: medsurg CODE STATUS: DNR Plan of care discussed with attending Dr. Aleksander Messina MD, PGY 1 Attending Provider Attestation/Addendum Pt was evaluated and plan formulated together with the housestaff team. I have reviewed the residents note above and agree with most of its content. Please refer to the residents note for additional details.
[2024-07-10] MEDS: SODIUM CHLORIDE 0.45 % 1,000 ML 150 ML IV (20:37)
[2024-07-10] MEDS: POTASSIUM CHL 10 mEq IVPB 10 MEQ/100 ML BAG 100 MEQ IV ×2 (20:37→23:07)
[2024-07-10 20:42] LABS: Amphetamine/Methamp Scrn,U Negative (Negative); Barbiturate Screen,Urine Negative (Negative); Benzodiazepines Screen,Urine Negative (Negative); Benzoylecgonine Screen, Ur Negative (Negative); Fentanyl Screen,Urine Negative (Negative); Opiate Screen,Urine Negative (Negative); THC Screen,Urine Negative (Negative)
[2024-07-10] MEDS: cefTRIAXone/D5w 1gm IV premix 1 GM/50 ML BAG IV (20:50)
[2024-07-10 20:56] LABS: Procalcitonin 0.19 ng/ml (0.0-0.49)
[2024-07-10] MEDS: HEPARIN SOD INJ 5000 UNIT/ML VIAL SC (23:07)
[2024-07-10 23:33] VITALS: BMI 27.7
[2024-07-11] VITALS (9 sets, daily range): BP systolic 117–139; BP diastolic 59–73; PULSE 62–84; RESP 17–18; TEMP 36.8–37.2; O2SAT 94–96; BMI 11.0
[2024-07-11] MEDS: POTASSIUM CHL 10 mEq IVPB 10 MEQ/100 ML BAG 100 MEQ IV ×2 (00:18→02:05)
[2024-07-11] MEDS: SODIUM CHLORIDE 0.45 % 1,000 ML 150 ML IV (05:07)
[2024-07-11] MEDS: HEPARIN SOD INJ 5000 UNIT/ML VIAL SC ×3 (05:07→21:03)
[2024-07-11 06:02] LABS: Basophils # (Auto) 0.1 Thou/mm3 (0.0-0.2); Basophils % (Auto) 0 % (0-2.5); Eosinophils # (Auto) 0.4 Thou/mm3 (0.0-0.5); Eosinophils % (Auto) 3 % (0-10); Hematocrit 33.4 % (36.0-46.0); Immature Granulocytes % (Auto) 1 % (0-0); Immature Granulocytes Auto 0.13 Thou/mm3 (0.00-0.00); Lymphocytes # (Auto) 1.8 Thou/mm3 (1.0-4.8); Lymphocytes % (Auto) 12 % (10-50); Mean Corpuscular HGB Conc 32.9 g/dl (31.0-37.0); Mean Corpuscular Hemoglobin 28.5 pg (25.0-35.0); Mean Corpuscular Volume 87 fL (80-100); Monocytes # (Auto) 1.2 Thou/mm3 (0.0-0.8); Monocytes % (Auto) 8 % (0-12); Neutrophils # (Auto) 11.6 Thou/mm3 (1.8-7.7); Neutrophils % (Auto) 76 % (37-80); Nucleated Red Blood Cell % 0 /100 WBC (0); Platelet Count 243 Thou/mm3 (140-440); RDW Standard Deviation 42.2 fL (36.4-46.3); Red Blood Count 3.86 Miln/mm3 (4.00-5.20); White Blood Count 15.2 Thou/mm3 (3.6-11.0)
[2024-07-11 06:44] LABS: Anion Gap 7 (7-16); BUN/Creatinine Ratio 36 Ratio (12-20); Blood Urea Nitrogen 25 mg/dL (9-23); Calcium 8.6 mg/dL (8.3-10.6); Carbon Dioxide 27.5 mMol/L (20.0-31.0); Chloride 110 mMol/L (98-107); Creatine Kinase 736 U/L (34-171); Creatinine (Component) 0.7 mg/dL (0.6-1.3); Estimated Creatinine Clearance 69.6 mL/min (>60); Glucose 107 mg/dL (74-106); Osmolality,Calculated 291 (275-295); Potassium 3.1 mMol/L (3.4-5.1); Sodium 144 mMol/L (136-145); eGFR > 60 See Note
[2024-07-11] MEDS: Lisinopril 20 MG TABLET 40 MG PO (08:12)
[2024-07-11] MEDS: ESCITALOPRAM OXALATE 10 MG TABLET PO (08:12)
[2024-07-11] MEDS: DILTIAZEM CD 120 MG CAPCR 240 MG PO (10:21)
[2024-07-11] MEDS: POTASSIUM CHLORIDE 20 mEq TABCR 40 MEQ PO (10:21)
--- NOTE | 2024-07-11 11:02 | CHAP ---
Patient was visited by a Spiritual Care Volunteer on 07/11/2024 between 0900 and 0920 and received comfort, encouragement and/or prayer.
--- NOTE | 2024-07-11 11:34 | PC.SS ---
Teresa Andrade is 73-year-old female admitted to Med-Surg for Rhabdomyolysis. SS conducted bedside contact with the patient to complete initial assessment and to discuss discharge planning.? Patient confirmed demographic information. Patient identifies her dtr Debbie Gianna [phone] as her surrogate decision maker. Patient resides at home with her dtr. Pt states she is typically able to complete all ADL?s independently, no need for any source of DME. Pts PCP is Dr. Unique Rojo and her pharmacy of choice is [facility] on [address]. DC options discussed, pt wishes to return home. Pts family will provide transportation upon DC. No further intervention required at this time, social insurance adviser would be available to address any further concerns. DC Plan: Home Contact: Debbie Katz [phone] ? PCP: Unique Rojo
--- NOTE | 2024-07-11 13:16 | ESPR_ITS ---
<Statement entered by Zhanna Alejandro MD - 07/18/24 13:46> I reviewed above note and agree with findings and plans. I have also personally examined the patient with medicine team and went over assessment and plan with medical team including supervisor international reservations and resident physician. <Statement entered by Ledy Pugh MD - 07/11/24 13:34> I discussed with and supervised the supervisor international reservations physician who took care of this patient. I personally saw and examined the patient and discussed the assessment and plan with the entire medicine team, including my attending , I agree with the assessment and plan as documented below Ledy Pugh M.D. PGY-2 Disclaimer: Despite multiple revisions, due to the dictation software being used, the document bellow may not be free of grammatical errors including phonetic/typographic errors. However, this does not deter from our commitment to providing health care in the patient's best interest in mind. Documentation for date of: 07/11/24 Subjective Subjective Interval history: No overnight events. Patient seen and examined at bedside, resting comfortably. Denies fevers, chills, chest pain, muscle pain, shortness of breath, nausea, vomiting. Discontinue fluid. Given Rocephin. Wound care for left wrist wrap. Exam Vital Signs Temp Pulse Resp BP Pulse Ox O2 Del Method 98.3 F 72 17 135/64 H 96 Room Air 07/11/24 11:54 07/11/24 11:54 07/11/24 11:54 07/11/24 11:54 07/11/24 11:54 07/11/24 11:54 Narrative Exam PE: Gen: Well-developed and well-nourished. HEENT: NCAT, PERRLA, EOMI, MMM, anicteric conjunctivae. CVS: normal S1 and S2. RRR. No M/R/G. Resp: CTA B/L. No rhonchi, rales, crackles or wheezing. Abd: soft, non-tender, non-distended. MSK: Good ROM in BUE & BLE. No edema or rash. Neuro: CN II-XII grossly intact. Alert and oriented x3. Right upper extremity strength 5/5. Right lower extremity 2/5. Left lower extremity 4/5. Left wrist splinted, fingers slightly dark, with peripheral pulses, sensation, movement, cap refill intact. Psych: appropriate mood and affect. Objective Labs 07/11/24 04:44 07/11/24 04:44 Labs: Laboratory Results - last 24 hr 07/10/24 07/10/24 07/10/24 14:15 18:20 19:51 WBC 15.0 H RBC 4.04 Hgb 11.8 L Hct 36.0 MCV 89 MCH 29.2 MCHC 32.8 RDW Std Deviation 43.8 Plt Count 248 D Neut % (Auto) 76 Lymph % (Auto) 12 [place] % (Auto) 8 Eos % (Auto) 3 Baso % (Auto) 0 Neut # (Auto) 11.5 H Lymph # (Auto) 1.7 [place] # (Auto) 1.2 H Eos # (Auto) 0.4 Baso # (Auto) 0.1 Immature Gran # (Auto) 0.17 H Absolute Nucleated RBC 0.00 Immature Gran % 1 H Nucleated RBC % 0 PT 10.8 INR 1.0 APTT 24.0 Sodium 144 146 H Potassium 2.9 L 2.9 L Chloride 108 H 111 H Carbon Dioxide 29.8 27.3 Anion Gap 6 L 8 BUN 37 H 31 H Creatinine 0.9 0.8 Estim Creat Clear Calc Not Performed. Not Performed. eGFR > 60 > 60 BUN/Creatinine Ratio 41 H 39 H Glucose 142 H 100 Calculated Osmolality 297 H 297 H Calcium 9.4 8.6 Corrected Calcium 9.9 9.2 Magnesium 2.1 Total Bilirubin 0.8 0.7 AST 87 H 84 H ALT 60 H 55 H Alkaline Phosphatase 120 H 106 Lactate Dehydrogenase 505 H Total Creatine Kinase 937 H 1004 H D Troponin I 0.038 B-Natriuretic Peptide 24 Total Protein 6.4 6.0 Albumin 3.4 3.2 L Globulin 3.0 2.8 Albumin/Globulin Ratio 1.1 L 1.1 L Procalcitonin 0.19 Ur Collection Type Clean Catch Urine Color Yellow Urine Clarity Turbid A Urine pH 6.5 Ur Specific [place] 1.018 Urine Protein Trace Urine Glucose (UA) Negative Urine Ketones Negative Urine Blood 2+ A Urine Nitrite Negative Urine Bilirubin Negative Urine Urobilinogen (Auto) 2.0 Ur Leukocyte Esterase Positive Urine RBC 90 H Urine WBC 41 H Ur Squamous Epith Cells 3 Urine Bacteria 3+ A Urine Opiates Screen Negative Urine Fentanyl Screen Negative Ur Barbiturates Screen Negative U Amphetamin/Meth Scrn Negative U Benzodiazepines Scrn Negative U Cocaine Metab Screen Negative U Marijuana (THC) Screen Negative 07/11/24 04:44 WBC 15.2 H RBC 3.86 L Hgb 11.0 L Hct 33.4 L MCV 87 MCH 28.5 MCHC 32.9 RDW Std Deviation 42.2 Plt Count 243 Neut % (Auto) 76 Lymph % (Auto) 12 [place] % (Auto) 8 Eos % (Auto) 3 Baso % (Auto) 0 Neut # (Auto) 11.6 H Lymph # (Auto) 1.8 [place] # (Auto) 1.2 H Eos # (Auto) 0.4 Baso # (Auto) 0.1 Immature Gran # (Auto) 0.13 H Absolute Nucleated RBC 0.00 Immature Gran % 1 H Nucleated RBC % 0 PT INR APTT Sodium 144 Potassium 3.1 L Chloride 110 H Carbon Dioxide 27.5 Anion Gap 7 BUN 25 H Creatinine 0.7 Estim Creat Clear Calc 69.6 eGFR > 60 BUN/Creatinine Ratio 36 H Glucose 107 H Calculated Osmolality 291 Calcium 8.6 Corrected Calcium Magnesium Total Bilirubin AST ALT Alkaline Phosphatase Lactate Dehydrogenase Total Creatine Kinase 736 H D Troponin I B-Natriuretic Peptide Total Protein Albumin Globulin Albumin/Globulin Ratio Procalcitonin Ur Collection Type Urine Color Urine Clarity Urine pH Ur Specific [place] Urine Protein Urine Glucose (UA) Urine Ketones Urine Blood Urine Nitrite Urine Bilirubin Urine Urobilinogen (Auto) Ur Leukocyte Esterase Urine RBC Urine WBC Ur Squamous Epith Cells Urine Bacteria Urine Opiates Screen Urine Fentanyl Screen Ur Barbiturates Screen U Amphetamin/Meth Scrn U Benzodiazepines Scrn U Cocaine Metab Screen U Marijuana (THC) Screen Quality Measures Quality Measures VTE prophylaxis Advance care planning discussed with:: patient Assessment & Plan Assessment Current Active Medications: Generic Name Dose Route Start Last Admin Trade Name Freq PRN Reason Stop Dose Admin Acetaminophen 650 mg 07/10/24 19:54 Acetaminophen 325 Mg Tablet PO 08/09/24 19:53 Q6H PRN Fever >101.5 Carvedilol 6.25 mg 07/11/24 17:30 Carvedilol 3.125 Mg Tablet PO 08/10/24 17:29 BIDWM NGUYỄN Diltiazem HCl 240 mg 07/11/24 09:30 07/11/24 10:21 Diltiazem Cd 120 Mg Capcr PO 08/10/24 09:29 240 mg QDAY NGUYỄN Administration Escitalopram Oxalate 10 mg 07/11/24 09:00 07/11/24 08:12 Escitalopram Oxalate 10 Mg Tablet PO 08/10/24 08:59 10 mg QDAY NGUYỄN Administration Heparin Sodium (Porcine) 5,000 unit 07/10/24 22:00 07/11/24 05:07 Heparin Sod Inj 5000 Unit/Ml Vial SC 07/24/24 21:59 5,000 unit Q8HR NGUYỄN Administration Ceftriaxone Sodium/Dextrose 1 gm in 50 mls @ 100 mls/hr 07/10/24 20:21 07/10/24 20:50 Rocephin/D5w 1gm Iv Premix IV 07/17/24 20:20 100 mls/hr QDAY@2100 NGUYỄN Administration Sodium Chloride 1,000 mls @ 100 mls/hr 07/11/24 09:12 Ns IV 07/11/24 19:11 .Q10H ONE Lisinopril 40 mg 07/11/24 09:00 07/11/24 08:12 Lisinopril 20 Mg Tablet PO 08/10/24 08:59 40 mg QDAY NGUYỄN Administration Polyethylene Glycol 17 gm 07/11/24 03:14 Polyethylene Glycol 17 Gm Packet PO 08/10/24 08:59 QDAY PRN CONSTIPATION Plan 73-year-old female with a previous medical history of hypertension, hyperlipidemia, recent fall with distal radial fracture in June 2024, cranial aneurysm rupture in 1982 with residual right-sided hemiparesis who was brought to the ED 07/10/2024 due to fall, generalized weakness and inability to ambulate independently. #Rhabdomyolysis #Hypernatremia Patient has a recent history of prolonged immobilization, labs showed elevated CK 1004 elevated AST, ALT. Patient received 2 L bolus in manage fluids 150 mL/h, CK decreased below 1000. Fluids discontinued. ? Monitor electrolytes ? I's and O's ? Home statin is on hold for now #Hypokalemia Patient presents with hypokalemia. ? Replete electrolytes as necessary - Continue to monitor #UTI Urine was turbid, blood 2+, 90 RBCs, WBC count 41, 3+ bacteria. Patient denies dysuria, but reports urinary incontinence. - Ceftriaxone 1g qday (started 07/10) - urine culture #History of falls #History of brain aneurysm rupture #Right-sided hemiparesis Patient has a history of falls and was unable to stand up independently which resulted in prolonged immobilization. She will benefit from course of physical therapy. ? PT evaluation #Hypertension Patient history of hypertension. ? Resume home meds: Coreg, diltiazem - Patient is on enalapril, given lisinopril - Holding home hydrochlorothiazide due to electrolyte abnormalities #History of depression Patient history as stated. ?Resume home escitalopram FEN: cardiac DVT prophylaxis: heparin sc GI prophylaxis: none Dispo: medsurg CODE STATUS: DNR Plan of care discussed with senior resident Dr. Pugh PGY?[address] Alejandro. Simone Porter MD PGY?1
[2024-07-11] MEDS: SODIUM CHLORIDE 0.9% 1000 ML 1,000 ML 100 ML IV (13:37)
[2024-07-11] MEDS: carVEDILOL 3.125 MG TABLET 6.25 MG PO (17:48)
[2024-07-11] MEDS: cefTRIAXone/D5w 1gm IV premix 1 GM/50 ML BAG IV (20:23)
[2024-07-12] VITALS (9 sets, daily range): BP systolic 125–139; BP diastolic 54–90; PULSE 65–93; RESP 14–18; TEMP 36.1–36.9; O2SAT 93–96
[2024-07-12] MEDS: HEPARIN SOD INJ 5000 UNIT/ML VIAL SC ×3 (05:30→21:00)
[2024-07-12 06:27] LABS: Basophils # (Auto) 0.1 Thou/mm3 (0.0-0.2); Basophils % (Auto) 1 % (0-2.5); Eosinophils # (Auto) 0.6 Thou/mm3 (0.0-0.5); Eosinophils % (Auto) 4 % (0-10); Hematocrit 35.6 % (36.0-46.0); Hemoglobin 11.8 g/dL (12.0-16.0); Immature Granulocytes % (Auto) 2 % (0-0); Immature Granulocytes Auto 0.27 Thou/mm3 (0.00-0.00); Lymphocytes % (Auto) 11 % (10-50); Mean Corpuscular HGB Conc 33.1 g/dl (31.0-37.0); Mean Corpuscular Hemoglobin 28.7 pg (25.0-35.0); Mean Corpuscular Volume 87 fL (80-100); Monocytes # (Auto) 1.5 Thou/mm3 (0.0-0.8); Monocytes % (Auto) 8 % (0-12); Neutrophils # (Auto) 13.3 Thou/mm3 (1.8-7.7); Neutrophils % (Auto) 75 % (37-80); Nucleated Red Blood Cell % 0 /100 WBC (0); Platelet Count 241 Thou/mm3 (140-440); RDW Standard Deviation 42.6 fL (36.4-46.3); Red Blood Count 4.11 Miln/mm3 (4.00-5.20); White Blood Count 17.7 Thou/mm3 (3.6-11.0)
[2024-07-12 06:41] LABS: Anion Gap 8 (7-16); BUN/Creatinine Ratio 29 Ratio (12-20); Blood Urea Nitrogen 26 mg/dL (9-23); Carbon Dioxide 23.7 mMol/L (20.0-31.0); Chloride 111 mMol/L (98-107); Creatinine (Component) 0.9 mg/dL (0.6-1.3); Estimated Creatinine Clearance 54.1 mL/min (>60); Glucose 109 mg/dL (74-106); Osmolality,Calculated 290 (275-295); Potassium 3.8 mMol/L (3.4-5.1); Sodium 143 mMol/L (136-145); eGFR > 60 See Note
[2024-07-12] MEDS: carVEDILOL 3.125 MG TABLET 6.25 MG PO ×2 (08:53→17:14)
[2024-07-12] MEDS: Lisinopril 20 MG TABLET 40 MG PO (08:54)
[2024-07-12] MEDS: ESCITALOPRAM OXALATE 10 MG TABLET PO (08:54)
[2024-07-12] MEDS: DILTIAZEM CD 120 MG CAPCR 240 MG PO (08:54)
[2024-07-12 11:26] LABS: Basophils # (Auto) 0.1 Thou/mm3 (0.0-0.2); Basophils % (Auto) 0 % (0-2.5); Eosinophils # (Auto) 0.4 Thou/mm3 (0.0-0.5); Eosinophils % (Auto) 2 % (0-10); Hematocrit 34.2 % (36.0-46.0); Hemoglobin 11.3 g/dL (12.0-16.0); Immature Granulocytes % (Auto) 1 % (0-0); Immature Granulocytes Auto 0.25 Thou/mm3 (0.00-0.00); Lymphocytes % (Auto) 6 % (10-50); Mean Corpuscular Hemoglobin 29.3 pg (25.0-35.0); Mean Corpuscular Volume 89 fL (80-100); Monocytes # (Auto) 1.1 Thou/mm3 (0.0-0.8); Monocytes % (Auto) 7 % (0-12); Neutrophils # (Auto) 14.5 Thou/mm3 (1.8-7.7); Neutrophils % (Auto) 83 % (37-80); Nucleated Red Blood Cell % 0 /100 WBC (0); Platelet Count 268 Thou/mm3 (140-440); RDW Standard Deviation 43.4 fL (36.4-46.3); Red Blood Count 3.86 Miln/mm3 (4.00-5.20); White Blood Count 17.4 Thou/mm3 (3.6-11.0)
--- NOTE | 2024-07-12 11:33 | PC.SS ---
Addendum entered by Dianne Alcantara 07/12/24 15:37: SS spoke to Milagros @ [facility] and they will have a bed available after 6p.mJudi shin. Updated daughter who prefers [facility]. Christopher was provided with information and is reviewing request for auth. Patient is also a level 2 PASRR. Possible d/c today or tomorrow. Original Note: Follow up note: SS spoke to patient's daughter, Debbie re: discharge plans. Patient has d/c orders for today. Daughter prefers patient to d/c to SNF short term. Patient worked with PT and was max assist. SS will send inquiry through [facility] and PAS. SS will update nrusing. Ins. will require authorization. SS will contact [employer]. Daughter's preference was [facility]. However, they do not have any female beds at this time. Daughter was agreeable to any other facility in [facility].
--- NOTE | 2024-07-12 14:19 | ESPR_ITS ---
<Statement entered by Zhanna Alejandro MD - 07/18/24 13:48> I reviewed above note and agree with findings and plans. I have also personally examined the patient with medicine team and went over assessment and plan with medical team including manager of international and resident physician. <Statement entered by Ledy Pugh MD - 07/12/24 16:29> No acute overnight events. patient was seen and examined, CPK downtrended yesterday ~700, still complaining of mild pain, however significantly improved.CBC showed Leukocytosis, however no sign or symptoms of infection. Patient is afebrile , vitals stable. will monitor Pt worked with the patient and recomended SNF placement Family is agreable, Sw are involved -pending insurance authorizations I discussed with and supervised the manager of international physician who took care of this patient. I personally saw and examined the patient and discussed the assessment and plan with the entire medicine team, including my attending , I agree with the assessment and plan as documented below Ledy Pugh M.D. PGY-2 Disclaimer: Despite multiple revisions, due to the dictation software being used, the document bellow may not be free of grammatical errors including phonetic/typographic errors. However, this does not deter from our commitment to providing health care in the patient's best interest in mind. Documentation for date of: 07/12/24 Subjective Subjective Interval history: No overnight events. Patient seen and examined at bedside, resting comfortably. Patient denies fevers, chills, chest pain, shortness of breath, generalized muscle ache, nausea, vomiting. Pending placement to acute rehab. Continuing empiric treatment for UTI. Exam Vital Signs Temp Pulse Resp BP Pulse Ox O2 Del Method 97.4 F 78 18 139/57 H 93 L Room Air 07/12/24 11:28 07/12/24 11:28 07/12/24 11:28 07/12/24 11:28 07/12/24 11:07/12/24 11:28 Narrative Exam PE: Gen: Well-developed and well-nourished. HEENT: NCAT, PERRLA, EOMI, MMM, anicteric conjunctivae. CVS: normal S1 and S2. RRR. No M/R/G. Resp: CTA B/L. No rhonchi, rales, crackles or wheezing. Abd: soft, non-tender, non-distended. MSK: Good ROM in BUE & BLE. No edema or rash. Neuro: CN II-XII grossly intact. Alert and oriented x3. Right upper extremity strength 5/5. Right lower extremity 2/5. Left lower extremity 4/5. Left wrist splinted, fingers slightly dark, with peripheral pulses, sensation, movement, cap refill intact. Psych: appropriate mood and affect. Objective Labs 07/12/24 11:01 07/12/24 04:45 Labs: Laboratory Results - last 24 hr 07/12/24 07/12/24 04:45 11:01 WBC 17.7 H 17.4 H RBC 4.11 3.86 L Hgb 11.8 L 11.3 L Hct 35.6 L 34.2 L MCV 87 89 MCH 28.7 29.3 MCHC 33.1 33.0 RDW Std Deviation 42.6 43.4 Plt Count 241 268 Neut % (Auto) 75 83 H Lymph % (Auto) 11 6 L Franklin % (Auto) 8 7 Eos % (Auto) 4 2 Baso % (Auto) 1 0 Neut # (Auto) 13.3 H 14.5 H Lymph # (Auto) 2.0 1.0 [place] # (Auto) 1.5 H 1.1 H Eos # (Auto) 0.6 H 0.4 Baso # (Auto) 0.1 0.1 Immature Gran # (Auto) 0.27 H 0.25 H Absolute Nucleated RBC 0.00 0.00 Immature Gran % 2 H 1 H Nucleated RBC % 0 0 Sodium 143 Potassium 3.8 D Chloride 111 H Carbon Dioxide 23.7 Anion Gap 8 BUN 26 H Creatinine 0.9 Estim Creat Clear Calc 54.1 L eGFR > 60 BUN/Creatinine Ratio 29 H Glucose 109 H Calculated Osmolality 290 Calcium 9.0 Quality Measures Quality Measures VTE prophylaxis Advance care planning discussed with:: patient Assessment & Plan Assessment Current Active Medications: Generic Name Dose Route Start Last Admin Trade Name Freq PRN Reason Stop Dose Admin Acetaminophen 650 mg 07/10/24 19:54 Acetaminophen 325 Mg Tablet PO 08/09/24 19:53 Q6H PRN Fever >101.5 Carvedilol 6.25 mg 07/11/24 17:30 07/12/24 08:53 Carvedilol 3.125 Mg Tablet PO 08/10/24 17:29 6.25 mg BIDWM NGUYỄN Administration Diltiazem HCl 240 mg 07/11/24 09:30 07/12/24 08:54 Diltiazem Cd 120 Mg Capcr PO 08/10/24 09:29 240 mg QDAY NGUYỄN Administration Escitalopram Oxalate 10 mg 07/11/24 09:00 07/12/24 08:54 Escitalopram Oxalate 10 Mg Tablet PO 08/10/24 08:59 10 mg QDAY NGUYỄN Administration Heparin Sodium (Porcine) 5,000 unit 07/10/24 22:00 07/12/24 13:24 Heparin Sod Inj 5000 Unit/Ml Vial SC 07/24/24 21:59 5,000 unit Q8HR NGUYỄN Administration Ceftriaxone Sodium/Dextrose 1 gm in 50 mls @ 100 mls/hr 07/10/24 20:21 07/11/24 20:23 Rocephin/D5w 1gm Iv Premix IV 07/17/24 20:20 100 mls/hr QDAY@2100 NGUYỄN Administration Lisinopril 40 mg 07/11/24 09:00 07/12/24 08:54 Lisinopril 20 Mg Tablet PO 08/10/24 08:59 40 mg QDAY NGUYỄN Administration Polyethylene Glycol 17 gm 07/11/24 03:14 Polyethylene Glycol 17 Gm Packet PO 08/10/24 08:59 QDAY PRN CONSTIPATION Plan 73-year-old female with a previous medical history of hypertension, hyperlipidemia, recent fall with distal radial fracture in June 2024, cranial aneurysm rupture in 1982 with residual right-sided hemiparesis who was brought to the ED 07/10/2024 due to fall, generalized weakness and inability to ambulate independently. #UTI Urine was turbid, blood 2+, 90 RBCs, WBC count 41, 3+ bacteria. Patient denies dysuria, but reports urinary incontinence. - Ceftriaxone 1g qday (started 07/10) - urine culture #Rhabdomyolysis, resolved #Hypernatremia, resolved Patient has a recent history of prolonged immobilization, labs showed elevated CK 1004 elevated AST, ALT. Patient received 2 L bolus in manage fluids 150 mL/h, CK decreased below 1000. Fluids discontinued. ? Monitor electrolytes ? I's and O's ? Home statin is on hold for now #History of falls #History of brain aneurysm rupture #Right-sided hemiparesis Patient has a history of falls and was unable to stand up independently which resulted in prolonged immobilization. She will benefit from course of physical therapy. ? PT evaluation, recommended acute rehab placement - Pending placement #Hypokalemia, resolved Patient presents with hypokalemia. ? Replete electrolytes as necessary - Continue to monitor #Hypertension Patient history of hypertension. ? Resume home meds: Coreg, diltiazem - Patient is on enalapril, given lisinopril - Holding home hydrochlorothiazide due to electrolyte abnormalities #History of depression Patient history as stated. ?Resume home escitalopram FEN: cardiac DVT prophylaxis: heparin sc GI prophylaxis: none Dispo: medsurg CODE STATUS: DNR Plan of care discussed with senior resident Dr. Pugh PGY?[address] Alejandro. Simone Porter MD PGY?1
[2024-07-12] MEDS: cefTRIAXone/D5w 1gm IV premix 1 GM/50 ML BAG IV (20:54)
[2024-07-13] VITALS (7 sets, daily range): BP systolic 140–158; BP diastolic 62–68; PULSE 67–83; RESP 18; TEMP 36.4–36.8; O2SAT 95–98; BMI 28.1
[2024-07-13] MEDS: HEPARIN SOD INJ 5000 UNIT/ML VIAL SC ×2 (05:37→13:47)
[2024-07-13 06:05] LABS: Basophils # (Auto) 0.1 Thou/mm3 (0.0-0.2); Basophils % (Auto) 1 % (0-2.5); Eosinophils # (Auto) 0.7 Thou/mm3 (0.0-0.5); Eosinophils % (Auto) 4 % (0-10); Immature Granulocytes % (Auto) 3 % (0-0); Immature Granulocytes Auto 0.52 Thou/mm3 (0.00-0.00); Lymphocytes # (Auto) 1.9 Thou/mm3 (1.0-4.8); Lymphocytes % (Auto) 11 % (10-50); Mean Corpuscular HGB Conc 32.4 g/dl (31.0-37.0); Mean Corpuscular Hemoglobin 28.9 pg (25.0-35.0); Mean Corpuscular Volume 90 fL (80-100); Monocytes # (Auto) 1.5 Thou/mm3 (0.0-0.8); Monocytes % (Auto) 9 % (0-12); Neutrophils # (Auto) 12.6 Thou/mm3 (1.8-7.7); Neutrophils % (Auto) 72 % (37-80); Nucleated Red Blood Cell % 0 /100 WBC (0); Platelet Count 288 Thou/mm3 (140-440); RDW Standard Deviation 44.7 fL (36.4-46.3); White Blood Count 17.4 Thou/mm3 (3.6-11.0)
[2024-07-13 06:26] LABS: Anion Gap 8 (7-16); BUN/Creatinine Ratio 31 Ratio (12-20); Blood Urea Nitrogen 28 mg/dL (9-23); Carbon Dioxide 24.3 mMol/L (20.0-31.0); Chloride 111 mMol/L (98-107); Creatinine (Component) 0.9 mg/dL (0.6-1.3); Estimated Creatinine Clearance 54.6 mL/min (>60); Glucose 108 mg/dL (74-106); Osmolality,Calculated 291 (275-295); Potassium 4.4 mMol/L (3.4-5.1); Sodium 143 mMol/L (136-145); eGFR > 60 See Note
[2024-07-13] MEDS: carVEDILOL 3.125 MG TABLET 6.25 MG PO (07:59)
[2024-07-13] MEDS: Lisinopril 20 MG TABLET 40 MG PO (08:01)
[2024-07-13] MEDS: ESCITALOPRAM OXALATE 10 MG TABLET PO (08:02)
[2024-07-13] MEDS: DILTIAZEM CD 120 MG CAPCR 240 MG PO (08:02)
[2024-07-13] MEDS: CIPROFLOXACIN/D5w 200 MG IVPB 200 MG/100 ML BAG 100 MG IV (10:16)
--- NOTE | 2024-07-13 11:40 | PC.SS ---
Addendum entered by Jordyn Villaseñor 07/13/24 11:54: [facility] Original Note: SS contacted PASSR and LVL 2 was closed. Pending update on portal
--- NOTE | 2024-07-13 15:35 | PC.NURSE ---
SPOKE TO ASHELY DAVENPORT AT [facility] TO GIVE DISCHARGE INSTRUCTIONS
--- NOTE | 2024-07-13 15:49 | PD.RESDS ---
Planned Discharge Date 07/13/24 DS: Providers Provider Date of admission: 07/10/24 19:54 Primary care physician: Physician No Primary/Family Admitting Provider: Rolo Armijo MD Attending Provider on Admission: Zhanna Alejandro MD Consults: 07/10/24 20:01 Referral Physical Therapy Routine Comment: Physician Instructions: 07/11/24 13:12 Referral Wound Care Routine Comment: L arm w/ cast from recent hospital visit Attending Provider on DC: Zhanna Alejandro MD Discharging Provider: Simone Fiore MD DS: Diagnosis Problem List Completed Was Problem List Reviewed/Reconciled?: Yes Hospital Course Hospital Course Hospital course: 73-year-old female with a previous medical history of hypertension, hyperlipidemia, depression, recent fall with distal radial fracture in June 2024, 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 Patient very mild rhabdomyolysis, resolved quickly with short course of IV fluids. During patient's stay patient found to have asymptomatic bacteriuria, treated with short course of antibiotics. Patient seen for PT eval who recommended placing acute rehab facility for further therapy, which patient and daughter were agreeable to. Patient medically stable and cleared for discharge. Discharge plan: The following medications have been STOPPED: - Coreg. Please do not resume until you have spoken with your primary doctor. Please seek a referral to cardiology. Please continue taking all other meds as previously prescribed. Please follow with your primary physician within 1-2 weeks. Please continue to participate with physical therapy to regain mobility. Please return to ED if you develop new or worsening symptoms. Diagnoses: #UTI #Rhabdomyolysis, resolved #Hypernatremia, resolved #History of falls #History of brain aneurysm rupture #Right-sided hemiparesis #Hypokalemia, resolved #Hypertension #History of depression Plan of care discussed with attending Dr. Alejandro. Simone Fiore MD PGY?1 Status at Discharge Overall status at discharge: patient is progressing back to baseline Time Spent with Patient Time attestation: Total time spent providing and/or coordinating discharge services: Time spent: Greater than 30 minutes Exam Vital Signs Temp Pulse Resp BP Pulse Ox O2 Del Method 97.5 F 83 18 140/67 H 98 Room Air 07/13/24 11:28 07/13/24 11:28 07/13/24 11:28 07/13/24 11:28 07/13/24 11:28 07/13/24 11:28 Narrative Exam PE: Gen: Well-developed and well-nourished. HEENT: NCAT, PERRLA, EOMI, MMM, anicteric conjunctivae. CVS: normal S1 and S2. RRR. No M/R/G. Resp: CTA B/L. No rhonchi, rales, crackles or wheezing. Abd: soft, non-tender, non-distended. MSK: Good ROM in BUE & BLE. No edema or rash. Neuro: CN II-XII grossly intact. Alert and oriented x3. Right upper extremity strength 5/5. Right lower extremity 2/5. Left lower extremity 4/5. Left wrist splinted, fingers slightly dark, with peripheral pulses, sensation, movement, cap refill intact. Psych: appropriate mood and affect. Discharge Plan Plan Patient Disposition: Xfer Skilled Nsg Fac (SNF) Disposition Comment: [facility] Patient condition on transfer: Stable Care Plan Goals: The following medications have been STOPPED: - Coreg. Please do not resume until you have spoken with your primary doctor. Please seek a referral to cardiology. Please continue taking all other meds as previously prescribed. Please follow with your primary physician within 1-2 weeks. Please continue to participate with physical therapy to regain mobility. Please return to ED if you develop new or worsening symptoms. Prescriptions/Referrals Prescriptions/Med Rec: Continued atorvastatin 20 mg Tablet 20 mg PO QPM diltiazem HCl [DILT-XR] 240 mg Capsule,Ext.Rel 24h Degradable 240 mg PO QDAY enalapril maleate 20 mg Tablet 20 mg PO QDAY hydrochlorothiazide 25 mg Tablet 25 mg PO QDAY aspirin [Aspir-81] 81 mg Tablet,Delayed Release (Dr/Ec) 81 mg PO QDAY One Daily Women 50 Plus 400-120 mcg-mg Tablet 1 tab PO DAILY escitalopram oxalate 10 mg Tablet 10 mg PO QDAY Qty: 30 0RF Discontinued carvedilol 6.25 mg Tablet 6.25 mg PO BID Referrals: No Primary/Family,Physician [Primary Care Provider] - Patient/Caregiver Discharge Instructions Discharge Activity: as per physical therapy Education Materials: Exercise for a Healthier Heart, ED Rhabdomyolysis Print Language: [place] Stand Alone Forms: Joaquina Award Info., Patient Portal Info Letter Discharge Order Discharge Orders: Discharge (Routine); Ordered 07/12/24 Ordered By: Simone Fiore Quality Discharge Quality Measures VTE prophylaxis
== END 2024-07-13 16:15 | disposition skilled nursing facility (03) | DRG 558 ==
LOC: SERX 19:45 → SERHOLD 19:59 → S3SX 21:38
PROVIDERS: Registered Nurse General Practice; Student in an Organized Health Care Education/Training Program; Admitting Provider Internal Medicine; Emergency Provider Emergency Medicine; Visit Provider Internal Medicine
DX: M62.82 Rhabdomyolysis (principal); G81.91 Hemiplegia, unspecified affecting right dominant side; E87.0 Hyperosmolality and hypernatremia; N39.0 Urinary tract infection, site not specified; I10 Essential (primary) hypertension; E78.5 Hyperlipidemia, unspecified; F32.A Depression, unspecified; R74.01 Elevation of levels of liver transaminase levels; R74.8 Abnormal levels of other serum enzymes; E87.6 Hypokalemia; Z91.81 History of falling; Z66 Do not resuscitate; W01.0XXA Fall on same level from slipping, tripping and stumbling without subsequent striking against object, initial encounter; Y92.009 Unspecified place in unspecified non-institutional (private) residence as the place of occurrence of the external cause; Z79.899 Other long term (current) drug therapy; Z87.820 Personal history of traumatic brain injury; Z79.82 Long term (current) use of aspirin
CPT/HCPCS: 36415; 70450; 71045; 72125; 80048; 80053; 80307; 81001; 82550; 83615; 83735; 83880; 84145; 84484; 85025; 85610; 85730; 87081; 93005; 96360; 96365; 97162; 99285; J0696; J0744; J1643; J3480; J7030; A9270